=== PATIENT | male | born 1960 | race Caucasian/White ===

== ENCOUNTER 2018-04-27 07:08 | Emergency (ER) | payer OTHER ==
[2018-04-27] MEDS ORDERED: LEVALBUTEROL 1.25 MG/3 ML NEB ONE ×2 (07:56→10:35)
[2018-04-27] MEDS ORDERED: NA CHLORIDE 0.9% 500 ML ONE (07:56)
[2018-04-27 08:27] LABS: Absolute Lymphocytes (CBC) 1.4 K/uL (0.7-4.9); Absolute Monocytes 1.1 K/uL (0.1-1.3); Absolute Neutrophil 8.6 K/uL (1.8-8.0); Basophils % 0.8 % (0-1.3); Eosinophils % 1.1 % (0-4.4); Hematocrit 39.9 % (39.6-49.0); Lymphocytes % 12.7 % (15.3-44.8); MCH 30.5 pg (27.0-35.0); MCV 88.9 fL (80-100); MPV 7.5 fL (7.6-11.3); Monocytes % 9.7 % (3.3-12.3); RBC Red Blood Cell Count 4.49 M/uL (4.33-5.43)
[2018-04-27 08:38] LABS: ALT/SGPT 41 U/L (12-78); AST/SGOT 14 U/L (15-37); Albumin 3.2 g/dL (3.4-5.0); Alkaline Phosphatase 73 U/L (45-117); BUN Blood Urea Nitrogen 12 mg/dL (7-18); Bicarbonate 25 mmol/L (21-32); Bilirubin Direct 0.2 mg/dL (0-0.2); Bilirubin Total 0.7 mg/dL (0.2-1.0); Glucose Level 236 mg/dL (74-106); Lipase 103 U/L (73-393); NT PRO-BNP 54 pg/mL (<125); Potassium 3.6 mmol/L (3.5-5.1); Protein, Total 6.9 g/dL (6.4-8.2); Sodium Level 138 mmol/L (136-145); Troponin (Emerg Dept Use Only) < 0.02 ng/mL (0.0-0.045)
--- NOTE | 2018-04-27 10:10 | RAD REPORT ---
EXAM DESCRIPTION: CT - Chest For Pe Angio - 04/27/2018 9:49 am CLINICAL HISTORY: Chest pain COMPARISON: 2007 TECHNIQUE: Dynamically enhanced axial 3 mm thick images of the chest were obtained during administra tion of <100> mL Isovue 370 IV contrast. Coronal and oblique reconstruction images were generated and reviewed. Exam utilizes a protocol for optimal evaluation of pulmonary arterial tree. Maximum intensity projections 3D imaging was utilized All CT scans are performed using dose optimization technique as appropriate and may include automated exposure control or mA/KV adjustment according to patient size. FINDINGS: A pulmonary embolus is not seen. A thoracic aortic aneurysm is not noted. A pleural effusion is not seen. A pericardial effusion is not seen. A lung consolidation is not present. IMPRESSION: Negative for a pulmonary embolism.
--- NOTE | 2018-04-27 10:15 | RAD REPORT ---
EXAM DESCRIPTION: CT - Abdomen Pelvis W Contrast - 04/27/2018 9:50 am CLINICAL HISTORY: Abdominal pain/left flank pain COMPARISON: none. TECHNIQUE: Computed axial tomography of the abdomen pelvis was obtained. 100 cc Isovue-300 was admin istered intravenously. Oral contrast was not requested which limits evaluation of bowel. All CT scans are performed using dose optimization technique as appropriate and may include automated exposure control or mA/KV adjustment according to patient size. FINDINGS: The liver has a diminished attenuation consistent with fatty infiltration Spleen, pancreas, and adrenals appear unremarkable. Tiny nonobstructing renal calculi seen . The gallbladder has been removed There is no evidence of diverticulitis. IMPRESSION: No acute abnormality is displayed.
--- NOTE | 2018-04-27 10:20 | RAD REPORT ---
EXAM DESCRIPTION: Nic Chaudhari (2 Views)04/27/2018 8:27 am CLINICAL HISTORY: Chest pain COMPARISON: November 2017 FINDINGS: The lungs appear clear of acute infiltrate. The heart is mildly enlarged. Postsurgical changes involve the chest. IMPRESSION: No acute abnormalities displayed
--- NOTE | 2018-04-27 11:55 | EDPHYS ---
Physician Documentation [facility] Name: Danish Coles Age: 57 yrs Sex: Male : 1960 Arrival Date: 04/27/2018 Time: 07:10 Bed 20 Private MD: Sina Acosta H ED Physician Tobias Zhao HPI: 04/27 11:48 This 57 yrs old Male presents to ER via Ambulatory with complaints of Rib rn Pain. 11:48 The patient or guardian reports chest pain that is located primarily in the left rn lateral anterior chest. Onset: yesterday. The pain does not radiate. Associated signs and symptoms: Pertinent negatives: abdominal pain, cough, diaphoresis, dizziness, lower extremity swelling, lightheadedness, near syncope, palpitations, syncope, vomiting. The chest pain is described as aching, dull. Duration: The patient or guardian reports multiple episodes, that are intermittent. Modifying factors: The symptoms are alleviated by nothing. the symptoms are aggravated by cough, deep breath, movement, palpation of area. Severity of pain: At its worst the pain was mild in the emergency department the pain is unchanged. The patient has experienced similar episodes in the past. Reports gets a lot of muscle aches and cramps, started having left chest/rib pain yesterday, non-radiating, worse with touching/movement/breathing/cough, came in because this one lasting longer than normal, no diaphoresis/nausea/vomiting, reports chronic sob with exertion that has been evaluated multiple times and told was due to myasthenia gravis, has seen Dr. Gastelum for this. Pain intermittent. . Historical: - Allergies: 07:19 No Known Allergies; hb - PMHx: 07:19 Myasthenia Gravis; Hypertension; hb - Immunization history:: Adult Immunizations up to date. - Social history:: Smoking status: Patient/guardian denies using tobacco. - Ebola Screening: : No symptoms or risks identified at this time. - Family history:: not pertinent. - Hospitalizations: : No recent hospitalization is reported. ROS: 11:48 Constitutional: Negative for fever, chills, and weight loss, Eyes: Negative for injury, rn pain, redness, and discharge, Neck: Negative for injury, pain, and swelling, Cardiovascular: Negative for palpitations, and edema, Respiratory: + left chest wall pain Abdomen/GI: Negative for abdominal pain, nausea, vomiting, diarrhea, and constipation, Back: Negative for injury and pain, MS/Extremity: Negative for injury and deformity, Skin: Negative for injury, rash, and discoloration, Neuro: Negative for headache, weakness, numbness, tingling, and seizure. Exam: 11:48 Constitutional: This is a well developed, well nourished patient who is awake, alert, rn and in no acute distress, ambulated to room without difficulty Head/Face: Normocephalic, atraumatic. Eyes: Pupils equal round and reactive to light, extra-ocular motions intact. Lids and lashes normal. Conjunctiva and sclera are non-icteric and not injected. Cornea within normal limits. Periorbital areas with no swelling, redness, or edema. Chest/axilla: + reproducible left lateral chest wall tenderness, no crepitus Cardiovascular: Regular rate and rhythm with a normal S1 and S2. No gallops, murmurs, or rubs. Normal PMI, no JVD. No pulse deficits. Respiratory: mild tachypnea with clear bilateral breath sounds Abdomen/GI: Soft, non-tender, with normal bowel sounds. No distension or tympany. No guarding or rebound. No evidence of tenderness throughout. Skin: Warm, dry with normal turgor. Normal color with no rashes, no lesions, and no evidence of cellulitis. MS/ Extremity: Pulses equal, no cyanosis. Neurovascular intact. Full, normal range of motion. Equal circumference. Neuro: Awake and alert, GCS 15, oriented to person, place, time, and situation. Cranial nerves II-XII grossly intact. Motor strength 5/5 in all extremities. Sensory grossly intact. Cerebellar exam normal. Normal gait. Vital Signs: 07:17 BP 142 / 91; Pulse 103; Resp 20; Pulse Ox 94% on R/A; Pain 8/10; hb 08:30 BP 129 / 81; Pulse 90; Resp 22; Temp 97.9(O); Pulse Ox 94% on R/A; Pain 5/10; em 09:24 BP 131 / 88; Pulse 89; Resp 24; Pulse Ox 93% on R/A; em 10:30 BP 120 / 67; Pulse 88; Resp 22; Pulse Ox 99% on R/A; em 11:29 BP 116 / 69; Pulse 93; Resp 18; Pulse Ox 92% on R/A; Pain 3/10; em 12:12 BP 106 / 69; Pulse 91; Resp 18; Pulse Ox 95% on R/A; Pain 3/10; em MDM: 07:12 Patient medically screened. rn 11:48 Differential diagnosis: acute pericarditis, anxiety, congestive heart failure rn costochondritis, gastroesophageal reflux disease (GERD), pleurisy, pneumonia, pneumothorax, pulmonary embolus, chest wall pain, pleurisy, muscle cramps/spasm. Data reviewed: vital signs, nurses notes, lab test result(s), EKG, radiologic studies, CT scan, plain films, and as a result, I will discharge patient. Counseling: I had a detailed discussion with the patient and/or guardian regarding: the historical points, exam findings, and any diagnostic results supporting the discharge/admit diagnosis, lab results, radiology results, the need for outpatient follow up, to return to the emergency department if symptoms worsen or persist or if there are any questions or concerns that arise at home. Response to treatment: the patient's symptoms have mildly improved after treatment, and as a result, I will discharge patient. Special discussion: I discussed with the patient/guardian in detail that at this point there is no indication for admission to the hospital. It is understood, however, that if the symptoms persist or worsen the patient needs to return immediately for re-evaluation. Based on the history and exam findings, there is no indication for further emergent testing or inpatient evaluation. I discussed with the patient/guardian the need to see the primary care provider for further evaluation of the symptoms. 04/27 07:22 Order name: Basic Metabolic Panel; Complete Time: 09:03 rn 04/27 07:22 Order name: CBC with Diff; Complete Time: 09: rn 04/27 07:22 Order name: NT PRO-BNP; Complete Time: : rn 04/27 07:22 Order name: Troponin (emerg Dept Use Only); Complete Time: 09:03 rn 04/27 07:22 Order name: Lipase; Complete Time: 09:03 rn 04/27 07:22 Order name: LFT's; Complete Time: 09:03 rn 04/27 07:22 Order name: EKG; Complete Time: :23 rn 04/27 07:22 Order name: XRAY Chest Pa And Lat (2 Views); Complete Time: 10:29 rn 04/27 09:04 Order name: CT Chest For PE Angio; Complete Time: 10:13 rn 04/27 09:04 Order name: CT Abd/Pelvis - W/Contrast; Complete Time: 10:29 rn 04/27 10:30 Order name: Troponin (emerg Dept Use Only); Complete Time: 11:42 rn 04/27 07:22 Order name: Cardiac monitoring; Complete Time: 07:47 rn 04/27 07:22 Order name: EKG - Nurse/Tech; Complete Time: 07:47 rn 04/27 07:22 Order name: IV Saline Lock; Complete Time: 07:47 rn 04/27 07:22 Order name: Labs collected and sent; Complete Time: 07:47 rn 04/27 07:22 Order name: O2 Per Protocol; Complete Time: 07:47 rn 04/27 07:22 Order name: O2 Sat Monitoring; Complete Time: 07:47 rn Administered Medications: 08:01 Drug: Xopenex 1.25 mg Route: Inhalation; em 09:31 Follow up: Response: No adverse reaction; Marked relief of symptoms em 08:01 Drug: NS 0.9% 500 ml Route: IV; Rate: bolus; Site: right forearm; em 08:30 Follow up: IV Status: Completed infusion; IV Intake: 500ml em 10:32 Drug: Xopenex 1.25 mg Route: Inhalation; em 11:14 Follow up: Response: No adverse reaction; Marked relief of symptoms em Disposition: 04/27/18 11:54 Discharged to Home. Impression: Chest pain, unspecified. - Condition is Stable. - Discharge Instructions: Nonspecific Chest Pain, Chest Wall Pain, Pain Without a Known Cause. - Medication Reconciliation Form, Thank You Letter, Antibiotic Education, Prescription Opioid Use form. - Follow up: Sina Acosta DO; When: 2 - 3 days; Reason: Recheck today's complaints, Re-evaluation by your physician. - Problem is new. - Symptoms have improved. Signatures: Dispatcher [employer] EDDonnell Arango, REMOTE MORTGAGE UNDERWRITER REMOTE MORTGAGE UNDERWRITER em Tobias Zhao MD MD rn Baxter, Heather, RN RN Corrections: (The following items were deleted from the chart) 12:13 11:54 04/27/2018 11:54 Discharged to Home. Impression: Chest pain, unspecified. em Condition is Stable. Forms are Medication Reconciliation Form, Thank You Letter, Antibiotic Education, Prescription Opioid Use. Follow up: Sina Acosta; When: 2 - 3 days; Reason: Recheck today's complaints, Re-evaluation by your physician. Problem is new. Symptoms have improved. rn
--- NOTE | 2018-04-27 11:55 | ER ---
Nurse's Notes [facility] Name: Danish Coles Age: 57 yrs Sex: Male : 1960 Arrival Date: 04/27/2018 Time: 07:10 Bed 20 Private MD: Sina Acosta H Diagnosis: Chest pain, unspecified Presentation: 04/27 07:16 Presenting complaint: Patient states: Left sided chest pain that woke him up from sleep hb at 0300 today. Pain is worse with inspiration and movement. Denies injury/fever. Transition of care: patient was not received from another setting of care. Onset of symptoms was April 27, 2018. Risk Assessment: Do you want to hurt yourself or someone else? Patient reports no desire to harm self or others. Care prior to arrival: None. 07:16 Method Of Arrival: Ambulatory hb 07:16 Acuity: DEREK 3 hb 09:26 Initial Sepsis Screen: Does the patient meet any 2 criteria? No. Patient's initial em sepsis screen is negative. Does the patient have a suspected source of infection? No. Patient's initial sepsis screen is negative. Historical: - Allergies: 07:19 No Known Allergies; hb - PMHx: 07:19 Myasthenia Gravis; Hypertension; hb - Immunization history:: Adult Immunizations up to date. - Social history:: Smoking status: Patient/guardian denies using tobacco. - Ebola Screening: : No symptoms or risks identified at this time. - Family history:: not pertinent. - Hospitalizations: : No recent hospitalization is reported. Screenin:25 Abuse screen: Denies threats or abuse. Nutritional screening: No deficits noted. em Tuberculosis screening: No symptoms or risk factors identified. Fall Risk None identified. Assessment: 07:27 General: Appears in no apparent distress. uncomfortable, Behavior is calm, cooperative, em Denies fever. Pain: Complains of pain in left lateral anterior chest. Neuro: Level of Consciousness is awake, alert, obeys commands, Oriented to person, place, time, situation. Cardiovascular: Capillary refill < 3 seconds Patient's skin is warm and dry. Cardiovascular: Denies chest pain, nausea, palpitations, Respiratory: Reports shortness of breath Airway is patent Respiratory effort is even, unlabored, Respiratory pattern is regular, symmetrical, Breath sounds are clear bilaterally. the patient has mild shortness of breath. GI: Abdomen is obese, Patient currently denies nausea, vomiting. : No signs and/or symptoms were reported regarding the genitourinary system. EENT: No signs and/or symptoms were reported regarding the EENT system. Derm: Skin is intact, Skin is pink, warm \T\ dry. Musculoskeletal: Range of motion: intact in all extremities. 07:45 Reassessment: I agree with previous assessment. hb 08:30 Reassessment: Patient appears in no apparent distress at this time. Patient and/or em family updated on plan of care and expected duration. Pain level reassessed. Patient is alert, oriented x 3, equal unlabored respirations, skin warm/dry/pink. reports pain in left side of chest to be better, reports pain has moved to the left flank now but is better, provider notified, will continue to monitor, no new orders received Patient states feeling better. 09:29 Reassessment: Patient appears in no apparent distress at this time. Patient and/or em family updated on plan of care and expected duration. Pain level reassessed. Patient is alert, oriented x 3, equal unlabored respirations, skin warm/dry/pink. pt wheeled to CT via wheelchair. 10:30 Reassessment: Patient appears in no apparent distress at this time. Patient and/or em family updated on plan of care and expected duration. Pain level reassessed. Patient is alert, oriented x 3, equal unlabored respirations, skin warm/dry/pink. 11:30 Reassessment: Patient appears in no apparent distress at this time. Patient and/or em family updated on plan of care and expected duration. Pain level reassessed. Patient is alert, oriented x 3, equal unlabored respirations, skin warm/dry/pink. Patient states symptoms have improved. Vital Signs: 07:17 BP 142 / 91; Pulse 103; Resp 20; Pulse Ox 94% on R/A; Pain 8/10; hb 08:30 BP 129 / 81; Pulse 90; Resp 22; Temp 97.9(O); Pulse Ox 94% on R/A; Pain 5/10; em 09:24 BP 131 / 88; Pulse 89; Resp 24; Pulse Ox 93% on R/A; em 10:30 BP 120 / 67; Pulse 88; Resp 22; Pulse Ox 99% on R/A; em 11:29 BP 116 / 69; Pulse 93; Resp 18; Pulse Ox 92% on R/A; Pain 3/10; em 12:12 BP 106 / 69; Pulse 91; Resp 18; Pulse Ox 95% on R/A; Pain 3/10; em ED Course: 07:10 Patient arrived in ED. as 07:10 Sina Acosta DO is Private Physician. as 07:12 Tobias Zhao MD is Attending Physician. rn 07:16 Triage completed. hb 07:19 Arm band placed on right wrist. hb 07:25 Patient has correct armband on for positive identification. Placed in gown. Bed in low em position. Call light in reach. Side rails up X2. Adult w/ patient. 07:25 No provider procedures requiring assistance completed. em 07:47 Donnell Edmonds LVN is Primary Nurse. em 08:27 XRAY Chest Pa And Lat (2 Views) In Process Unspecified. EDMS 09:49 CT Chest For PE Angio In Process Unspecified. EDMS 09:50 CT Abd/Pelvis - W/Contrast In Process Unspecified. EDMS 11:53 Sina Acosta DO is Referral Physician. rn 12:11 IV discontinued, intact, bleeding controlled, No redness/swelling at site. Pressure em dressing applied. Administered Medications: 08:01 Drug: Xopenex 1.25 mg Route: Inhalation; em 09:31 Follow up: Response: No adverse reaction; Marked relief of symptoms em 08:01 Drug: NS 0.9% 500 ml Route: IV; Rate: bolus; Site: right forearm; em 08:30 Follow up: IV Status: Completed infusion; IV Intake: 500ml em 10:32 Drug: Xopenex 1.25 mg Route: Inhalation; em 11:14 Follow up: Response: No adverse reaction; Marked relief of symptoms em Intake: 08:30 IV: 500ml; Total: 500ml. em Outcome: 11:54 Discharge ordered by MD. rn 12:11 Discharged to home ambulatory, with family. em 12:11 Condition: good 12:11 Discharge instructions given to patient, family, Instructed on discharge instructions, follow up and referral plans. Demonstrated understanding of instructions, follow-up care. 12:13 Patient left the ED. em Signatures: Dispatcher [employer] EDDonnell Arango, CHILD CARE LEAD TEACHER CHILD CARE LEAD TEACHER em Edith Rosales as Tobias Zhao MD MD rn Josiane Stein RN RN Corrections: (The following items were deleted from the chart) 12:13 08:30 BP 129 / 81; Pulse 90bpm; Resp 22bpm; Pulse Ox 94% RA; Pain 5/10; em em
--- NOTE | 2018-04-28 10:24 | EKG ---
Test Date: 2018-04-27 Test Time: 07:45:17 It Infrastructure Consultant: MICKEY MEASUREMENT RESULTS: Intervals: Rate: 96 ND: 160 QRSD: 90 QT: 340 QTc: 429 [place]: P: 22 ND: 160 QRS: 0 T: 26 INTERPRETIVE STATEMENTS: Normal sinus rhythm Normal ECG Compared to ECG 08/30/2016 09:32:12 No significant changes Electronically Signed On 04-28-18 10:21:37 CDT by Vick Laws
== END 2018-04-27 12:13 | disposition home or self-care (01) ==
LOC: ER 07:08
DX: R07.9 Chest pain, unspecified (principal); I10 Essential (primary) hypertension
CPT/HCPCS: 36415; 71046; 71275; 74177; 80048; 80076; 83690; 83880; 84484; 85025; 93005; 99284; Q9967

== ENCOUNTER 2018-10-11 08:25 | Emergency (ER) | payer OTHER ==
[2018-10-11 08:54] LABS: Absolute Lymphocytes (CBC) 3.3 K/uL (0.7-4.9); Absolute Monocytes 1.2 K/uL (0.1-1.3); Absolute Neutrophil 8.9 K/uL (1.8-8.0); Basophils % 0.3 % (0-1.3); Eosinophils % 0.6 % (0-4.4); Hematocrit 44.5 % (39.6-49.0); MPV 7.8 fL (7.6-11.3); Monocytes % 9.2 % (3.3-12.3); RBC Red Blood Cell Count 5.13 M/uL (4.33-5.43)
[2018-10-11 09:06] LABS: Arterial Blood Carboxyhemoglob 0.9 % (0-1.5); Blood Gas Oxyhemoglobin 91.9 % (94-97); Blood O2 Saturation 93.6 % (92-98.5)
--- NOTE | 2018-10-11 09:09 | RAD REPORT ---
EXAM DESCRIPTION: RAD - Chest Single View - 10/11/2018 9:02 am CLINICAL HISTORY: Dyspnea, patient found unresponsive, respiratory distress, myasthenia gravis COMPARISON: April 2018 TECHNIQUE: AP portable chest image was obtained 0857 hours . FINDINGS: Lung volumes are low. Lung markings are not substantially different from comparison. No ne w infiltrate or mass. No significant failure or volume overload findings. Sternotomy wires are in place. Heart and vasculature are normal. No measurable pleural effusion and n o pneumothorax. No acute bony abnormality seen. No acute aortic findings suspected. IMPRESSION: Shallow inspiration exam with chronic interstitial lung disease. Chest findings are similar to comparison.
[2018-10-11 09:14] LABS: Protime INR 1.04
[2018-10-11 09:42] LABS: Albumin 3.4 g/dL (3.4-5.0); Bilirubin Direct 0.2 mg/dL (0-0.2); Bilirubin Total 0.6 mg/dL (0.2-1.0); Potassium 3.5 mmol/L (3.5-5.1); Protein, Total 7.3 g/dL (6.4-8.2); Troponin (Emerg Dept Use Only) 0.14 ng/mL (0.0-0.045)
--- NOTE | 2018-10-11 10:12 | RAD REPORT ---
EXAM DESCRIPTION: CT - Chest For Pe Angio - 10/11/2018 10:03 am CLINICAL HISTORY: Respiratory distress, shortness of breath, patient found unresponsive COMPARISON: Chest films same date TECHNIQUE: Dynamically enhanced 3 mm thick images of the chest were obtained during administration o f approximately 150mL Isovue 370 IV contrast. Coronal and oblique MIP reconstruction images were gene rated and reviewed. Exam utilizes a protocol to evaluate the pulmonary arterial tree. All CT scans are performed using dose optimization technique as appropriate and may include automated exposure control or mA/KV adjustment according to patient size. FINDINGS: The patient has very extensive pulmonary embolic disease present. There is a large thrombu s at the left pulmonary artery bifurcation into the left upper and left lower lobes. Thrombus extends into the segmental branches of both of these lobes. Similar large thrombus is present at the right p ulmonary artery bifurcation to the right upper, right middle and right lower lobes. Thrombus extends into right lower lobe segmental branches. There is motion degradation present. There is saddle embolu s as well bridging the pulmonary artery bifurcation. The aorta as imaged shows no acute or suspicious finding. No pericardial thickening or effusion. No focal lung parenchymal process. No pulmonary hemorrhage identified. Interstitial markings are mini viktoria prominent. No pleural effusion or pleural thickening. No mediastinal or hilar suspicious masses. No chest wall masses or abnormal axillary lymphadenopathy. Findings telephoned to the referring physician 10:06 a.m.. IMPRESSION: Saddle pulmonary embolism with extensive thrombus at the bifurcation of the each pulmona ry artery into the lobes. Thrombus extends into segmental branches of each lower lobe.
--- NOTE | 2018-10-11 10:19 | RAD REPORT ---
EXAM DESCRIPTION: US - Extrem Venous W Compress Jett - 10/11/2018 10:00 am CLINICAL HISTORY: Shortness of breath, elevated D-dimer COMPARISON: None. TECHNIQUE: Real-time sonographic evaluation of the bilateral lower extremity common femoral, superfi cial femoral, popliteal and posterior tibial veins was performed. FINDINGS: Normal compressibility, flow augmentation, phasic flow and spontaneous flow are identified in the right lower extremity common femoral, superficial femoral, popliteal and posterior tibial vei ns. No intraluminal filling defects seen. Normal compression and augmentation seen in the left common femoral vein. Thrombus is identified in t he distal aspect of the superficial femoral vein extending distally into the popliteal vein. Little o r no compression was obtained. IMPRESSION: Acute deep venous thrombosis in the left popliteal vein and distal aspect of the femoral vein. No DVT in the right lower extremity.
[2018-10-11] MEDS ORDERED: ASPIRIN 81 MG CHEWABLE TABLET ONE (10:21)
[2018-10-11] MEDS ORDERED: PANTOPRAZOLE 40 MG INJ ONE (10:22)
[2018-10-11] MEDS ORDERED: HEPARIN/D5W 25,000 UNIT/500 ML BAG IV ONE (10:22)
[2018-10-11] MEDS ORDERED: NA CHLORIDE 0.9% 2,000 ML ONE (10:22)
[2018-10-11] MEDS ORDERED: HEPARIN 5000 UNIT/ML 1 ML VIAL ONE (10:22)
--- NOTE | 2018-10-11 10:31 | EDPHYS ---
Physician Documentation [facility] Name: Danish Coles Age: 58 yrs Sex: Male : 1960 Arrival Date: 10/11/2018 Time: 08:28 Bed 3 Private MD: ED Physician Shay Gunter HPI: 10/11 08:51 This 58 yrs old Male presents to ER via EMS with complaints of Syncope, irish Respiratory Distress. 08:51 The patient has experienced near-syncope. irish 08:52 Onset: The symptoms/episode began/occurred just prior to arrival. Duration: This was a irish single episode. Context: the episode(s) was witnessed, by family. Associated injury: The patient did not suffer any apparent associated injury. Associated signs and symptoms: The patient has no apparent associated signs or symptoms. Current symptoms: dyspnea. The patient has experienced similar episodes in the past, several times. Historical: - Allergies: 08:36 No Known Allergies; tw2 - Home Meds: 08:36 eculizumab intravenous intravenous [Active]; metformin 500 mg Oral tab 1 tab 2 times tw2 per day [Active]; simvastatin 20 mg Oral tab 1 tab once daily [Active]; lisinopril-hydrochlorothiazide 20-12.5 mg oral tab 1 tab once daily [Active]; zolpidem 10 mg Oral tab 1 tab once daily [Active]; pyridostigmine bromide 60 mg oral tab 1 tab 4 times per day [Active]; prednisone 10 mg Oral tab once daily [Active]; Fish Oil 1200 mg oral cap [Active]; Super B Complex + C 150 mg oral tab [Active]; niacin 500 mg Oral tab 1 tab 2 times per day [Active]; mycophenolate mofetil 500 mg oral tab 2 tabs 2 times per day [Active]; Zofran (as hydrochloride) 4 mg Oral tab 2 tabs 3 times per day [Active]; Soliris 300 mg/30 mL intravenous soln 90 mL every 14 days [Active]; - PMHx: 08:36 Hypertension; Myasthenia Gravis; tw2 - Immunization history:: Adult Immunizations. - Social history:: Smoking status: . - Ebola Screening: : Patient denies travel to an Ebola-affected area in the 21 days before illness onset. - Family history:: not pertinent. ROS: 08:52 Constitutional: Negative for fever, chills, and weight loss, Eyes: Negative for injury, irish pain, redness, and discharge, ENT: Negative for injury, pain, and discharge, Neck: Negative for injury, pain, and swelling, Cardiovascular: Negative for chest pain, palpitations, and edema, Abdomen/GI: Negative for abdominal pain, nausea, vomiting, diarrhea, and constipation, Back: Negative for injury and pain, : Negative for injury, bleeding, discharge, and swelling, MS/Extremity: Negative for injury and deformity, Skin: Negative for injury, rash, and discoloration, Psych: Negative for depression, anxiety, suicide ideation, homicidal ideation, and hallucinations, Allergy/Immunology: Negative for hives, rash, and allergies, Endocrine: Negative for neck swelling, polydipsia, polyuria, polyphagia, and marked weight changes, Hematologic/Lymphatic: Negative for swollen nodes, abnormal bleeding, and unusual bruising. 08:52 Respiratory: Positive for cough, shortness of breath, at rest. 08:52 MS/extremity: Negative for swelling, tenderness. 08:52 Neuro: Positive for dizziness, syncope, weakness. Exam: 08:52 Constitutional: This is a well developed, well nourished patient who is awake, alert, irish and in no acute distress. Head/Face: Normocephalic, atraumatic. Eyes: Pupils equal round and reactive to light, extra-ocular motions intact. Lids and lashes normal. Conjunctiva and sclera are non-icteric and not injected. Cornea within normal limits. Periorbital areas with no swelling, redness, or edema. ENT: Nares patent. No nasal discharge, no septal abnormalities noted. Tympanic membranes are normal and external auditory canals are clear. Oropharynx with no redness, swelling, or masses, exudates, or evidence of obstruction, uvula midline. Mucous membranes moist. Neck: Trachea midline, no thyromegaly or masses palpated, and no cervical lymphadenopathy. Supple, full range of motion without nuchal rigidity, or vertebral point tenderness. No Meningismus. Chest/axilla: Normal chest wall appearance and motion. Nontender with no deformity. No lesions are appreciated. Abdomen/GI: Soft, non-tender, with normal bowel sounds. No distension or tympany. No guarding or rebound. No evidence of tenderness throughout. Back: No spinal tenderness. No costovertebral tenderness. Full range of motion. Male : Normal genitalia with no discharge or lesions. Skin: Warm, dry with normal turgor. Normal color with no rashes, no lesions, and no evidence of cellulitis. MS/ Extremity: Pulses equal, no cyanosis. Neurovascular intact. Full, normal range of motion. Psych: Awake, alert, with orientation to person, place and time. Behavior, mood, and affect are within normal limits. 08:52 Cardiovascular: Rate: tachycardic, Rhythm: regular, Pulses: Pulses are 4+ in bilateral radial, brachial, femoral, popliteal, posterior tibial and and dorsalis pedis arteries.. Heart sounds: normal, Edema: is not appreciated, JVD: is not appreciated. Vital Signs: 08:25 BP 119 / 74; Pulse 111; Resp 30; Temp 98.1; Pulse Ox 90% on R/A; Pain 7/10; hb 09:26 BP 95 / 65; Pulse 93; Resp 20; Pulse Ox 96% on 3 lpm NC; hb 10:05 Weight 160.12 kg (R); tw2 10:56 BP 120 / 60; Pulse 87; Resp 21; Pulse Ox 99% on 3 lpm NC; tw2 MDM: 08:32 Patient medically screened. irish 08:55 Data reviewed: vital signs, nurses notes, lab test result(s), EKG, radiologic studies, irish plain films. 10/11 08:38 Order name: Basic Metabolic Panel; Complete Time: 09:57 hb 10/11 08:38 Order name: CBC with Diff; Complete Time: 09:09 hb 10/11 08:38 Order name: LFT's; Complete Time: 09:57 hb 10/11 08:38 Order name: Magnesium; Complete Time: 09:57 hb 10/11 08:38 Order name: NT PRO-BNP; Complete Time: 09:57 hb 10/11 08:38 Order name: PT-INR; Complete Time: 09:21 hb 10/11 08:38 Order name: Troponin (emerg Dept Use Only); Complete Time: 09:57 hb 10/11 08:42 Order name: Glucose, Ancillary Testing; Complete Time: 09:09 EDMS 10/11 08:51 Order name: ABG; Complete Time: 09:21 irish 10/11 08:58 Order name: D-Dimer; Complete Time: 09:21 EDMS 10/11 09:08 Order name: Blood Culture Adult (2) [facility] 10/11 09:09 Order name: Procalcitonin [facility] 10/11 08:38 Order name: XRAY Chest (1 view); Complete Time: 09:21 hb 10/11 08:38 Order name: EKG; Complete Time: 08:39 hb 10/11 08:38 Order name: Cardiac monitoring; Complete Time: 08:39 hb 10/11 08:38 Order name: EKG - Nurse/Tech; Complete Time: 08:39 hb 10/11 09:17 Order name: CT Chest For PE Angio [facility] 10/11 09:21 Order name: US Extremity Venous W Compression Jett [facility] 10/11 09:59 Order name: Echo w/ Doppler [facility] 10/11 08:38 Order name: IV Saline Lock; Complete Time: 08:39 hb 10/11 08:38 Order name: Labs collected and sent; Complete Time: 08:54 hb 10/11 08:38 Order name: O2 Per Protocol; Complete Time: 08:39 hb 10/11 08:38 Order name: O2 Sat Monitoring; Complete Time: 08:39 hb Administered Medications: 10:06 Not Given (Duplicate Order): NS 0.9% 500 ml IV at bolus once [facility] 10:18 Drug: ProTONIX 40 mg Route: IVP; Site: left antecubital; tw2 10:59 Follow up: Response: No adverse reaction tw2 10:19 Drug: Heparin (DVT/PE- Bolus per protocol) - HEParin 80 units/kg {Co-Signature: hb tw2 (Josiane Stein RN).} Route: IVP; Site: right wrist; 10:58 Follow up: Response: No adverse reaction tw2 11:15 Follow up: Response: No adverse reaction tw2 10:20 Drug: Aspirin Chewable Tablet 324 mg Route: PO; tw2 10:53 Follow up: Response: No adverse reaction tw2 10:20 Drug: Heparin (DVT/PE Drip) 18 units/kg/hr - (HEParin 53758 units, D5W 500 ml) tw2 {Co-Signature: hb (Josiane Stein RN).} Route: IV; Rate: per protocol; Site: right antecubital; 11:12 Follow up: IV Status: Infusion continued upon admission tw2 11:13 Follow up: IV Status: Infusion continued upon transfer tw2 10:24 Drug: NS 0.9% 1000 ml Route: IV; Rate: 1 bolus; Site: left antecubital; tw2 11:12 Follow up: Response: No adverse reaction; IV Status: Completed infusion; IV Intake: tw2 1000ml 10:52 Drug: NS 0.9% 1000 ml Route: IV; Rate: 125 ml/hr; Site: left antecubital; tw2 11:12 Follow up: IV Status: Infusion continued upon transfer tw2 Point of Care Testing: Blood Glucose: 08:35 Blood Glucose: 188 mg/dL; hb Ranges: Critical Glucose Levels:Adult <50 mg/dl or >400 mg/dl <40 mg/dl or >180 mg/dl Disposition: 10/11/18 10:31 Transfer ordered to [facility]. Diagnosis are Pulmonary embolism, Pulmonary embolism with acute cor pulmonale - saddle, extensive, Myasthenia gravis, Obesity, unspecified. - Reason for transfer: Higher level of care. - Accepting physician is to mya leiva, [facility], [facility]. - Condition is Critical. - Problem is new. - Symptoms are unchanged. Signatures: Dispatcher [employer] EDWA Shay Gunter MD MD cha Baxter, Heather, RN RN Nhi Tellez RN RN tw2 Josiane Stein RN Corrections: (The following items were deleted from the chart) 08:58 08:55 D-DIMER+COAG.LAB.BRZ ordered. [facility] EDMS 10:32 10:11 EC Echo Doppler W/Color Flow+ECHO.RAD.BRZ ordered. [facility] EDMS 11:38 10:31 10/11/2018 10:31 Transfer ordered to [facility]. Diagnosis is tw2 Pulmonary embolism; Pulmonary embolism with acute cor pulmonale - saddle, extensive; Myasthenia gravis; Obesity, unspecified. Reason for transfer: Higher level of care. Accepting physician is to mya [facility], [facility], [facility]. Condition is Critical. Problem is new. Symptoms are unchanged. irish
--- NOTE | 2018-10-11 10:31 | ER ---
Nurse's Notes [facility] Name: Danish Coles Age: 58 yrs Sex: Male : 1960 Arrival Date: 10/11/2018 Time: 08:28 Bed 3 Private MD: Diagnosis: Pulmonary embolism;Pulmonary embolism with acute cor pulmonale-saddle, extensive;Myasthenia gravis;Obesity, unspecified Presentation: 10/11 08:28 Presenting complaint: EMS states: Found unresponsive by couch, in respiratory distress. hb Became responsive on scene, SpO2 80s on RA, R 30s, BGL 168, NSR on 12 lead. reports SOB x 2-3 days. Transition of care: patient was not received from another setting of care. Onset of symptoms was October 11, 2018. Risk Assessment: Do you want to hurt yourself or someone else? Patient reports no desire to harm self or others. Care prior to arrival: Glucose check: 168 Oxygen administered. via a non-rebreather mask. 08:28 Method Of Arrival: EMS: [facility] hb 08:28 Acuity: DEREK 2 hb 08:42 Initial Sepsis Screen: Does the patient meet any 2 criteria? RR > 20 per min. HR > 90 tw2 bpm. Yes Does the patient have a suspected source of infection? Yes: Productive cough/pneumonia If YES to both, name of provider notified: Shay Gunter MD Triage Assessment: 08:39 General: Appears ill, obese, Behavior is anxious. Pain: Complains of pain in left tw2 shoulder. Neuro: Reports a syncopal episode. Respiratory: Reports shortness of breath at rest on exertion. Historical: - Allergies: 08:36 No Known Allergies; tw2 - Home Meds: 08:36 eculizumab intravenous intravenous [Active]; metformin 500 mg Oral tab 1 tab 2 times tw2 per day [Active]; simvastatin 20 mg Oral tab 1 tab once daily [Active]; lisinopril-hydrochlorothiazide 20-12.5 mg oral tab 1 tab once daily [Active]; zolpidem 10 mg Oral tab 1 tab once daily [Active]; pyridostigmine bromide 60 mg oral tab 1 tab 4 times per day [Active]; prednisone 10 mg Oral tab once daily [Active]; Fish Oil 1200 mg oral cap [Active]; Super B Complex + C 150 mg oral tab [Active]; niacin 500 mg Oral tab 1 tab 2 times per day [Active]; mycophenolate mofetil 500 mg oral tab 2 tabs 2 times per day [Active]; Zofran (as hydrochloride) 4 mg Oral tab 2 tabs 3 times per day [Active]; Soliris 300 mg/30 mL intravenous soln 90 mL every 14 days [Active]; - PMHx: 08:36 Hypertension; Myasthenia Gravis; tw2 - Immunization history:: Adult Immunizations. - Social history:: Smoking status: . - Ebola Screening: : Patient denies travel to an Ebola-affected area in the 21 days before illness onset. - Family history:: not pertinent. Screenin:38 Abuse screen: Denies threats or abuse. Nutritional screening: No deficits noted. tw2 Tuberculosis screening: No symptoms or risk factors identified. Fall Risk Fall in past 12 months (25 points). Secondary diagnosis (15 points) impaired mobility. Assessment: 08:40 Neuro: Level of Consciousness is awake, alert, obeys commands, Oriented to person, tw2 place. Cardiovascular: Rhythm is sinus rhythm with multifocal PVCs. Cardiovascular: Heart tones S1 S2 Respiratory: Airway is patent Respiratory effort is even, labored, Respiratory pattern is tachypnea Breath sounds are clear bilaterally. GI: Abdomen is round non-distended, obese, Bowel sounds present X 4 quads. : No signs and/or symptoms were reported regarding the genitourinary system. EENT: No signs and/or symptoms were reported regarding the EENT system. Derm: Skin is dry, Skin is pale. Musculoskeletal: Circulation, motion, and sensation intact. 08:45 Reassessment: provider at bedside at this time. tw2 09:45 Reassessment: Patient appears in no apparent distress at this time. No changes from tw2 previously documented assessment. Patient and/or family updated on plan of care and expected duration. Pain level reassessed. 10:55 Reassessment: Patient appears in no apparent distress at this time. No changes from tw2 previously documented assessment. Patient and/or family updated on plan of care and expected duration. Pain level reassessed. Vital Signs: 08:25 BP 119 / 74; Pulse 111; Resp 30; Temp 98.1; Pulse Ox 90% on R/A; Pain 7/10; hb 09:26 BP 95 / 65; Pulse 93; Resp 20; Pulse Ox 96% on 3 lpm NC; hb 10:05 Weight 160.12 kg (R); tw2 10:56 BP 120 / 60; Pulse 87; Resp 21; Pulse Ox 99% on 3 lpm NC; tw2 ED Course: 08:28 Patient arrived in ED. hb 08:28 Placed in gown. Bed in low position. Side rails up X2. mat cleaning machine operator on. Pulse ox on. tw2 NIBP on. 08:30 Triage completed. hb 08:31 Arm band placed on. hb 08:32 Shay Gunter MD is Attending Physician. irish 08:40 Initial lab(s) drawn, by ma, sent to lab. First set of blood cultures drawn by me, EKG ms done, by museum exhibit technician. reviewed by Shay Gunter MD ABG drawn. by RT staff, on oxygen. 08:40 Inserted saline lock: 22 gauge in right antecubital area, using aseptic technique. tw2 ,using aseptic technique. per Shreyas Locke Blood collected. 08:42 Nhi Tellez, RN is Primary Nurse. tw2 08:58 X-ray completed. Portable x-ray completed in exam room. Patient tolerated procedure jb2 well. 08:59 XRAY Chest (1 view) In Process Unspecified. EDMS 09:16 Notified ED physician of a critical lab result(s). DDIMER [id number]. hb 09:18 Radiology exam delayed due to lab results not completed at this time. (BUN/Creatinine). sj 10:01 US Extremity Venous W Compression Jett In Process Unspecified. EDMS 10:03 CT completed. Patient tolerated procedure well. Patient moved to CT via stretcher. Patient moved back from CT. 10:04 CT Chest For PE Angio In Process Unspecified. EDMS 10:11 INIAITED TRANSFER OF [place] TO [facility] WITH [facility] \T\1005, INIATED TRANSFER TO [address] WITH [facility] \T\ 1007. 10:22 CALL TO SPEAK WITH TO CONSULT ABOUT TRANSFER TO [facility] \T\1020. [facility] 10:25 [facility] WITH [facility] DENIED DUE TO NO ICU BEDS\T\1025. kj1 10:41 ADMINSTRAITIVE APPROVAL TO \T\ [address] FROM [facility] TO [place]ED [place] [id number] REPORT TO CALL TRANSFER CENTER. 11:37 No provider procedures requiring assistance completed. Patient transferred, IV remains tw2 in place. Maintain EMS IV. Dressing intact. Good blood return noted. Site clean \T\ dry. Gauge \T\ site: 20 g LEFT. Administered Medications: 10:06 Not Given (Duplicate Order): NS 0.9% 500 ml IV at bolus once irish 10:18 Drug: ProTONIX 40 mg Route: IVP; Site: left antecubital; tw2 10:59 Follow up: Response: No adverse reaction tw2 10:19 Drug: Heparin (DVT/PE- Bolus per protocol) - HEParin 80 units/kg {Co-Signature: hb tw2 (Josiane Stein RN).} Route: IVP; Site: right wrist; 10:58 Follow up: Response: No adverse reaction tw2 11:15 Follow up: Response: No adverse reaction tw2 10:20 Drug: Aspirin Chewable Tablet 324 mg Route: PO; tw2 10:53 Follow up: Response: No adverse reaction tw2 10:20 Drug: Heparin (DVT/PE Drip) 18 units/kg/hr - (HEParin 63174 units, D5W 500 ml) tw2 {Co-Signature: hb (Josiane Stein RN).} Route: IV; Rate: per protocol; Site: right antecubital; 11:12 Follow up: IV Status: Infusion continued upon admission tw2 11:13 Follow up: IV Status: Infusion continued upon transfer tw2 10:24 Drug: NS 0.9% 1000 ml Route: IV; Rate: 1 bolus; Site: left antecubital; tw2 11:12 Follow up: Response: No adverse reaction; IV Status: Completed infusion; IV Intake: tw2 1000ml 10:52 Drug: NS 0.9% 1000 ml Route: IV; Rate: 125 ml/hr; Site: left antecubital; tw2 11:12 Follow up: IV Status: Infusion continued upon transfer tw2 Point of Care Testing: Blood Glucose: 08:35 Blood Glucose: 188 mg/dL; hb Ranges: Intake: 11:12 IV: 1000ml; Total: 1000ml. tw2 Outcome: 10:31 ER care complete, transfer ordered by . irish 10:55 Instructed on the need for transfer. tw2 11:38 Transferred by helicopter to [facility]. tw2 11:38 Condition: unchanged 11:38 Patient left the ED. tw2 Signatures: Dispatcher [employer] Shay Angulo MD MD cha Buechter, Jesse jb2 Jones, Susan sj Solis, Maria ms Baxter, Heather, RN RN hb Nhi Tellez RN RN tw2 Monet Schmidt kj1 Josiane mims Corrections: (The following items were deleted from the chart) 08:33 08:28 Presenting complaint: EMS states: Found unresponsive by couch, in respiratory hb distress. Became responsive on scene, SpO2 80s, R 30s, BGL 168, NSR on 12 lead. hb 08:40 08:25 BP 119 / 74; Pulse 111bpm; Resp 30bpm; Pulse Ox 90% RA; Temp 98.1F; Pain 0/10; hb hb
--- NOTE | 2018-10-11 14:14 | ECHO ---
HEIGHT: ft in WEIGHT: 353 lb 0 oz DATE OF STUDY: 10/11/[address]: Shay Gunter MD 2-DIMENSIONAL: YES M.MODE: YES DOPPLER: YES COLOR FLOW: YES TDS: YES PORTABLE: DEFINITY: BUBBLE STUDY: DIAGNOSIS: DEEP VEIN THROMBOSIS/ PULMONARY EMBOLISM CARDIAC HISTORY: CATHERIZATION: SURGERY: PROSTHETIC VALVE: PACEMAKER: MEASUREMENTS (cm) DIASTOLIC (NORMALS) SYSTOLIC (NORMALS) IVSd 1.1 (0.6-1.2) LA Diam (1.9-4.0) LVEF 77% LVIDd 4.1 (3.5-5.7) LVIDs 2.3 (2.0-3.5) %FS 45% LVPWd 1.2 (0.6-1.2) Ao Diam 3.7 (2.0-3.7) 2 DIMENSIONAL ASSESSMENT: RIGHT ATRIUM: DILATED LEFT ATRIUM: NORMAL RIGHT VENTRICLE: DILATED LEFT VENTRICLE: NORMAL TRICUSPID VALVE: NORMAL MITRAL VALVE: NORMAL PULMONIC VALVE: NORMAL AORTIC VALVE: NORMAL PERICARDIAL EFFUSION: NONE AORTIC ROOT: NORMAL LEFT VENTRICULAR WALL MOTION: PARADOXICAL SEPTAL MOTION DOPPLER/COLOR FLOW: IMPAIRED LEFT VENTRICULAR RELAXATION/ MILDL TRICUSPID REGURGITATION. ESTIMATED RIGHT VENTRICULAR SYSTOLIC PRESSURE 50 mmHg (MODERATE PULMONARY HYPERTENSION). ESTIMATED RIGHT ATRIAL PRESSURE 15 mmHg. COMMENTS: NORMAL LEFT VENTRICULAR EJECTION FRACTION WITH PARADOXICAL SEPTAL MOTION. DILATED RIGHT ATRIUM AND RIGHT VENTRICLE. IMPAIRED LEFT VENTRICULAR RELAXATION. MILD TRICUSPID REGURGITATION. MODERATE PULMONARY HYEPTENSION. TECHNOLOGIST: CHUCKY PAPPAS
--- NOTE | 2018-10-11 21:19 | EKG ---
Test Date: 2018-10-11 Test Time: 08:34:27 Ortho Nurse: AMY MEASUREMENT RESULTS: Intervals: Rate: 97 OH: 162 QRSD: 90 QT: 362 QTc: 459 Bulan: P: 34 OH: 162 QRS: 4 T: -10 INTERPRETIVE STATEMENTS: Normal sinus rhythm T wave abnormality, consider anterior ischemia Abnormal ECG Compared to ECG 04/27/2018 07:45:17 T-wave abnormality now present Possible ischemia now present Electronically Signed On 10-11-18 21:17:53 CDT by Deng Kam
== END 2018-10-11 11:38 | disposition short-term general hospital (02) ==
LOC: ER 08:25
DX: I26.02 Saddle embolus of pulmonary artery with acute cor pulmonale (principal); G70.00 Myasthenia gravis without (acute) exacerbation; E66.9 Obesity, unspecified; I10 Essential (primary) hypertension
CPT/HCPCS: 36415; 71045; 71275; 80048; 80076; 82805; 82962; 83735; 83880; 84145; 84484; 85025; 85379; 85610; 87040; 93005; 93306; 93970; 99285; C9113; J1644; J7030; Q9967